=== PATIENT | male | born 1980 | race Hispanic/Latino ===

== ENCOUNTER → 2024-04-19 | Outpatient (CLI) | payer OTHER ==
--- NOTE | 2024-04-19 11:25 | HMCIMG ---
US ABDOMINAL COMPLETE HISTORY: Elevated liver function COMPARISON: None TECHNIQUE: Multiple transverse and longitudinal ultrasound images of the abdomen were obtained. FINDINGS: Abdominal aorta and inferior vena cava are unremarkable. Pancreas not well seen due to overlying bowel gas. Liver is echogenic consistent with liver parenchymal disease. Liver measures 15.3 cm. No gallstone is seen. Common duct measures 6 mm. No evidence of gallbladder wall thickening is seen. Both kidneys are seen. Right kidney measures 12.7 x 5 x 5.6 cm. Left kidney measures 11.1 x 5.7 x 5 cm. No hydronephrosis is seen of the both kidneys. There is left upper pole renal cyst measuring 9 x 12 mm. The spleen is grossly unremarkable. IMPRESSION: 1. No gallstone or ductal dilatation is seen. 2. No hydronephrosis is seen. Left upper pole renal cyst measuring 9 x 12 mm.
== END | disposition home or self-care (01) ==
LOC: RAH 04-12 10:05
PROVIDERS: ATTEND Family Medicine
DX: N28.1 Cyst of kidney, acquired (principal); R10.31 Right lower quadrant pain; R79.89 Other specified abnormal findings of blood chemistry
CPT/HCPCS: 76700

== ENCOUNTER 2025-03-18 07:54 | Emergency (ER) | payer OTHER ==
[~2025-03-18] VITALS: Ht 167.6 cm; Wt 68.0 kg
[2025-03-18 08:44] LABS: IMMATURE GRANULOCYTE ABSOLUTE 0.02 K/uL (0-1); NUCLEATED RED BLOOD CELLS 0.0 % (0.0-0.19); PLATELET COUNT (AUTO) 256 K/uL (130-400); RED BLOOD CELL COUNT(AUTO) 5.08 MIL/uL (4.50-6.20); RED CELL DISTRIBUTION WIDTH 11.8 % (11.0-15.5); WHITE BLOOD COUNT (AUTO) 6.6 K/uL (4.8-10.8)
[2025-03-18] MEDS ORDERED: LISI20TA24 PO (08:53)
[2025-03-18] MEDS ORDERED: GABA-529 PO (08:53)
[2025-03-18] MEDS ORDERED: EMPA10TA PO (08:53)
[2025-03-18] MEDS ORDERED: METF-444 PO (08:53)
--- NOTE | 2025-03-18 08:54 | ERN ---
General Chief Complaint: Abdominal Pain Stated Complaint: ABDOMINAL PAIN Time Seen by MD: 08:29 History of Present Illness Initial Comments 44-year-old male history of diabetes who presents to emergency room with complaints of right upper quadrant pain for the past two days. Patient states that he was in his normal food, rice, beans, bistek when he developed abdominal pain, nausea, vomiting. States that he has had similar symptoms before in the past however because he was unable to tolerate any fluids he decided to come to emergency room for evaluation secondary to pain while he was at work today. Allergies: Coded Allergies: No Known Drug Allergies (Unverified Allergy, Unknown, 03/18/25) Home Meds Reported Medications Gabapentin (Gabapentin) 100 Mg Capsule, 3 CAP PO BID for 30 Days, #90 CAP 0 Refills 03/18/25 Empagliflozin (Jardiance) 10 Mg Tablet, 10 MG PO DAILY, TAB 03/18/25 Metformin HCl (Metformin HCl) 500 Mg Tablet, 1 TAB PO BID for 30 Days, #60 TAB 0 Refills 03/18/25 Lisinopril (Lisinopril) 20 Mg Tablet, 1 TAB PO DAILY for 30 Days, #30 TAB 0 Refills 03/18/25 Past Medical History Past Medical History: Diabetes-Type II, Hypertension, Other Medical History Other: neuropathy Past Surgical History: None Gastrointestinal/Abdominal: (+) nausea, (+) vomiting, (+) abdominal pain Review of Systems: was completed, & the rest were negative. Physical Exam General Appearance: (+) no apparent distress Orientation: (+) alert, (+) oriented x 3 Eye: bilateral eye normal inspection, bilateral eye PERRL, bilateral eye EOMI Ear, Nose, Throat: (+) hearing grossly normal, (+) normal ENT inspection Neck: (+) normal inspection Respiratory: (+) chest non-tender, (+) lungs clear Gastrointestinal: (+) soft, (+) tender Gastrointestinal Comment Tenderness noted to right upper quadrant. Results Laboratory and Microbiology Lab and Micro Result Laboratory Tests Test 03/18/25 08:38 03/18/25 08:46 White Blood Count 6.6 K/uL (4.8-10.8) Red Blood Count 5.08 MIL/uL (4.50-6.20) Hemoglobin 16.6 g/dL (14.0-18.0) Hematocrit 47.3 % (42-54) Mean Corpuscular Volume 93.1 fL (79-99) Mean Corpuscular Hemoglobin 32.7 pg (27.0-33.0) Mean Corpuscular Hemoglobin Concent 35.1 g/dL (32.0-36.0) Red Cell Distribution Width 11.8 % (11.0-15.5) Platelet Count 256 K/uL (130-400) Mean Platelet Volume 8.9 fL (7.5-10.5) Immature Granulocyte % (Auto) 0.3 % (0-1) Neutrophils (%) (Auto) 61.2 % (40.0-77.0) Lymphocytes (%) (Auto) 25.2 % (21.0-51.0) Monocytes (%) (Auto) 9.3 % (3.0-13.0) Eosinophils (%) (Auto) 3.4 % (0.0-8.0) Basophils (%) (Auto) 0.6 % (0.0-5.0) Neutrophils # (Auto) 4.0 K/uL (1.8-7.7) Lymphocytes # (Auto) 1.7 K/uL (1.0-4.8) Monocytes # (Auto) 0.6 K/uL (0.1-1.0) Eosinophils # (Auto) 0.22 K/uL (0.00-0.70) Basophils # (Auto) 0.04 K/uL (0.00-0.20) Absolute Immature Granulocyte (auto 0.02 K/uL (0-1) Nucleated Red Blood Cells 0.0 % (0.0-0.19) Sodium Level 137 mmol/L (136-145) Potassium Level 4.8 mmol/L (3.5-5.1) Chloride Level 99 mmol/L (101-111) L Carbon Dioxide Level 30 mmol/L (21-32) Blood Urea Nitrogen 15 mg/dL (7-18) Creatinine 0.9 mg/dL (0.5-1.3) Glomerular Filtration Rate Calc 108 mL/min (>90) Random Glucose 204 mg/dL (70-105) H Total Calcium 9.1 mg/dL (8.5-10.1) Total Bilirubin 0.9 mg/dL (0.2-1.0) Direct Bilirubin 0.3 mg/dL (0.0-0.3) Aspartate Amino Transf (AST/SGOT) 64 U/L (10-37) H Alanine Aminotransferase (ALT/SGPT) 110 U/L (12-78) H Alkaline Phosphatase 88 U/L (50-136) Total Protein 8.5 g/dL (6.0-8.3) H Albumin 4.1 g/dL (3.5-5.0) Lipase 62 U/L (16-77) Whole Blood Glucose 178 MG/DL (70-110) H EKG/XRAY/US/CT/MRI Ultrasound Comment REASON: r/o shira + aranda, ate dreasy food ORDERING PHYSICIAN: DONNIE PIERRE MD PROCEDURE: [id number] - US ABDOMINAL RUQ\LTD EXAM: US Abdomen, Right Upper Quadrant. CLINICAL HISTORY: Rule out cholecystitis. Positive Aranda sign. TECHNIQUE: Right upper quadrant sonography performed with image documentation. COMPARISON: Ultrasound of the gallbladder dated 04/19/2024. FINDINGS: The liver is normal in size and measures 14.8 cm craniocaudally. Mild fatty liver. The gallbladder wall thickness is within normal limits and measures up to 1 mm. No cholelithiasis, sludge, wall thickening, pericholecystic fluid, or inflammation is evident. The CBD is normal in caliber and measures up to 4 mm in diameter. The pancreas is obscured due to the overlying bowel gas. The right kidney is normal in size and texture and measures 11.7 x 4.7 x 4.9 cm. IMPRESSION: No cholelithiasis or acute cholecystitis. Mild fatty liver. Compared to the prior study, there is no significant interval change. /[facility] 44-year-old male history of diabetes who was complaining of right upper quadrant pain. Signs and symptoms likely consistent with cholecystitis. We will get blood work and ultrasound to confirm this finding. Disposition pending results of labs and imaging. ED Course Orders Procedure Category Date Status Time Cbc With Differential LAB 03/18/25 Complete 08: Basic Metabolic Panel LAB 03/18/25 Complete 08: Lipase LAB 03/18/25 Complete 08:29 Hepatic Function Panel LAB 03/18/25 Complete 08:29 Us Abdominal Ruq\Ltd US 03/18/25 Resulted 08:34 0.9%Nacl 1000ml (Ns PHA 03/18/25 In Process 1000ml) 09:30 Current Medications Medications (Trade) Dose Ordered Sig/Magalis Route PRN Reason Start Time Stop Time Status Last Admin Dose Admin Sodium Chloride 1,000 ml @ 125 mls/hr Q8H ONCE IV 03/18/25 09:30 03/18/25 17:29 03/18/25 09:27 Vital Signs Date Time Temp Pulse Resp B/P (MAP) Pulse Ox O2 Delivery O2 Flow Rate FiO2 03/18/25 08:47 98.8 90 18 163/86 99 Room Air* 0 21 03/18/25 07:59 97.7 99 16 167/110 99 Room Air* 0 21 03/18/25 07:56 97.7 99 16 99 Room Air 0 Labs and imaging reviewed with the patient. Patient noted to have elevated gl ucose and mild transaminitis. Ultrasound negative for cholecystitis. We will have patient follow up with the PCP. 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 Advised to take pain medications as needed. He does not want any pain medications at this time. Advised on concerning signs and symptoms for which to return to the emergency room. We will have patient follow up with the PCP. All questions answered at this time. DX & DISP Disposition: Discharge Departure Impression: Primary Impression: Abdominal wall strain Condition: Stable Referrals: MIMI MOSHER (PCP) DONNIE PIERRE MD Mar 18, 2025 08:54
[2025-03-18 08:57] LABS: ASPARTATE AMINOTRANSFERASE 64.0 U/L (10-37); CREATININE 0.9 mg/dL (0.5-1.3); GLOMERULAR FILTR. RATE CALC 108.0 mL/min (>90); GLUCOSE,RANDOM 204.0 mg/dL (70-105); SODIUM SERUM 137.0 mmol/L (136-145); TOTAL PROTEIN, SERUM 8.5 g/dL (6.0-8.3); UREA NITROGEN, BLOOD 15.0 mg/dL (7-18)
[2025-03-18] MEDS: 0.9%NACL 1000ML 1,000 ML IV ONE (09:27)
--- NOTE | 2025-03-18 09:51 | HMCIMG ---
EXAM: US Abdomen, Right Upper Quadrant. CLINICAL HISTORY: Rule out cholecystitis. Positive Aranda sign. TECHNIQUE: Right upper quadrant sonography performed with image documentation. COMPARISON: Ultrasound of the gallbladder dated 04/19/2024. FINDINGS: The liver is normal in size and measures 14.8 cm craniocaudally. Mild fatty liver. The gallbladder wall thickness is within normal limits and measures up to 1 mm. No cholelithiasis, sludge, wall thickening, pericholecystic fluid, or inflammation is evident. The CBD is normal in caliber and measures up to 4 mm in diameter. The pancreas is obscured due to the overlying bowel gas. The right kidney is normal in size and texture and measures 11.7 x 4.7 x 4.9 cm. IMPRESSION: No cholelithiasis or acute cholecystitis. Mild fatty liver. Compared to the prior study, there is no significant interval change. /[facility]
[2025-03-18 11:11] VITALS: BP 138/74; PULSE 84; RESP 18; TEMP 98.8; O2SAT 99
== END 2025-03-18 11:29 | disposition home or self-care (01) ==
LOC: EDH 07:54
DX: S39.011A Strain of muscle, fascia and tendon of abdomen, initial encounter (principal); E11.40 Type 2 diabetes mellitus with diabetic neuropathy, unspecified; I10 Essential (primary) hypertension; Z79.84 Long term (current) use of oral hypoglycemic drugs; Z79.899 Other long term (current) drug therapy; X58.XXXA Exposure to other specified factors, initial encounter; Y93.89 Activity, other specified; Y92.89 Other specified places as the place of occurrence of the external cause; Y99.8 Other external cause status
CPT/HCPCS: 99284; 96360; 76705; 80076; 80048; 83690; 85025; 82948; 36415; J7030